=== PATIENT | male | born 1955 | race Caucasian/White ===

== ENCOUNTER → 2016-11-10 | Day surgery (SDC) | payer OTHER ==
[~2016-11-10] VITALS: Ht 177.8 cm; Wt 113.4 kg
[~2016-11-10] MED LIST: AMOXICILLIN875 M1 PO; ASPIRIN EC81 M1 PO; LIPITOR40 M1 PO; LISINOPRIL10 M1 PO; METOPROLOL SUCC50 M2 PO
--- NOTE | 2016-11-10 09:44 | Operative Report ---
Operative/Inv Procedure Report Surgery Date: 11/10/16 Name of Procedure: Endoscopic sinus surgery with 1. Middle meatal antrotomy with polypoid tissue removal, bilateral 2. Total ethmoidectomy with polypoid tissue removal, bilateral 3. Middle turbinate reduction, bilateral 4. Inferior turbinate submucous resection, bilateral Pre-Operative Diagnosis: 1. Chronic sinonasal polyposis sinusitis, ethmoid, maxillary, bilateral 2. Turbinate hypertrophy inferior and middle, bilateral Post-Operative Diagnosis: Same Estimated Blood Loss: less than 50ml Surgeon/Sample Cutter: PORTILLO VERAS MD Anesthesia: general endotracheal tube Specimens: 1. Sinus, ethmoid and maxillary and middle and inferoor turbinate, left 2. Sinus, ethmoid and maxillary and middle and inferior turbinate, right Microbiology: Non- Complications: none Condition: Stable on leaving the OR Operative Indication: Difficulty breathing through the nose, nasal congestion x several years Chronic sinusitis x years Patient treated with multiple antibiotics, antihistamines, decongestants, steroid and antihistamine nasal sprays with limited improvement, with improvement but then recurrence Frequent facial pressures and headaches Operative/Procedure Note Note: The patient was brought to the operating room. Placed on the operating room table in supine position. At first timeout was performed identifying the patient, ID numbers and procedure to be performed. Next general oral endotracheal anesthesia was induced. Endotracheal tube was secured with tape over the [left] corner of the lip. Operating room table was rotated 90 to the left and patient was positioned for septal surgery with head slightly hyperextended and rotated to the right. At first vasoconstriction was carried by application of Afrin spray on cottonoid pledgets. Next examination of the nasal septum was carried with revealed nasal septal bowing to the left however there is no obstruction of nasal fossa and therefore septoplasty was not performed. The entire surgery was carried for the most part with 0 and 30 scope. At times 70 scope was used to visualize maxillary sinus ostium and nasal frontal recess. Left middle turbinate and middle meatus were injected with 3 cc of 1% lidocaine with 1:100,000 epinephrine. This followed by placement of cottonoid pledgets saturated with Afrin and cocaine. Next endoscopic sinus surgery was carried out, first on the left and then on the right. The surgery was carried with direct visualization with 0 and 30 scopes and at times with 70 scope. Middle meatus was completely obstructed by polypoid tissue which was discending into the inferior meatus with complete obstruction of the inferior meatus. Polypectomy was carried. The polyps was stemming from the ethmoid sinuses. Once polyps were removed, then total ethmoidectomy was carried. At first anterior then middle and posterior. Polypoid tissue was removed from ethmoid sinuses followed by removal of the bony septations. The bone was very soft and demineralized due to polypoid tissue. Next, uncinate process was partly removed with Setliff forceps followed by removal of polypoid tissue. Maxillary sinus ostium was searched for with curved ball seeker. It was quite stenotic. Middle meatal antrotomy was carried. Polypoid tissue was removed. Sinus was suctioned. There was thick inspissated secretions. Next right middle meatus was addressed. Middle turbinate and middle meatus were injected with 3 cc of 1% lidocaine with 1:100,000 epinephrine. This followed by placement of cottonoid pledgets saturated with Afrin and cocaine. Now completion of surgery on the left side was done. Middle turbinate was reduced along its inferior border with Gruenwald forceps. This allowed for better access to the middle meatus and better ventilation of the middle meatus. Sinus surgery was carried on the right. Middle meatus was entered. Middle meatus was completely obstructed by polypoid tissue which was descending into the inferior meatus with complete obstruction of the inferior meatus. Polypectomy was carried. The polyps were stemming from the ethmoid sinuses. Once polyps were removed, then total ethmoidectomy was carried. At first anterior then middle and posterior. Polypoid tissue was removed from ethmoid sinuses followed by removal of the bony septations. The bone was very soft and demineralized due to polypoid tissue. Next, uncinate process was partly removed with Setliff forceps followed by removal of polypoid tissue. Maxillary sinus ostium was searched for with curved ball seeker. It was quite stenotic. Middle meatal antrotomy was carried. Polypoid tissue was removed. Sinus was suctioned. There was thick inspissated secretions. Next right middle turbinate was reduced along its inferior border with Gruenwald forceps. This allowed for better access to the middle meatus and better ventilation of the middle meatus. Next inferior turbinates were then in and outfractured and excised in submucous manner. This was done with 0 scope visualization. Surgery was completed. Nasal packing was applied next. Gelfilm rolled up into a roll was placed into the middle meatus 2 pieces on each side, secured with 2-0 silk which was then taped to the cheeks with Steri-Strips. Nasal fossa was packed with Telfa saturated with Bactroban ointment. Telfa was stitched anteriorly with 2-0 silk to prevent posterior displacement. Surgery was completed. The patient was reawakened, extubated and taken to the recovery room in good condition. There were no complications. Estimated blood was was 50 mL. Findings: 1. Ethmoid sinuses- polypoid tissue 2. Maxillary sinuses- polypoid tissue and thickened secretions 3. Middle turbinates- hypertrophy with obstruction of the middle meatus bilateral 4. Inferior Turbinates- hypertrophy with obstruction of the inferior meatus Discharge Disposition: Same Day Admissions
== END ==
LOC: STS 01:50
DX: J32.8 Other chronic sinusitis (principal); J33.8 Other polyp of sinus; J34.3 Hypertrophy of nasal turbinates; I25.10 Atherosclerotic heart disease of native coronary artery without angina pectoris; I10 Essential (primary) hypertension; I25.2 Old myocardial infarction; Z79.82 Long term (current) use of aspirin
CPT/HCPCS: 88305; J0131; J0690; J2250; J2405